=== PATIENT | female | born 1970 | race Caucasian/White ===

== ENCOUNTER 2021-01-15 13:34 | Emergency (ER) | payer BC ==
--- NOTE | 2021-01-15 13:47 | EDM.PDOC ---
ED HPI GENERAL MEDICAL PROBLEM - General Chief Complaint: General Stated Complaint: LUMP ON BACK OF CALF HX OF BLOOD CLOTS Time Seen by Provider: 01/15/21 13:45 Source of Information: Reports: Patient, RN Notes Reviewed History Limitations: Reports: No Limitations - History of Present Illness INITIAL COMMENTS - FREE TEXT/NARRATIVE: Patient is a 50-year-old female who presents to the ER for a lump on the back of her proximal left calf. States that she just noticed this a few days ago. It is not tender, but just bothersome. This is located on the proximal lateral portion of her left calf. She is having no numbness or tingling into her foot, but does also note that she has issues with plantar fasciitis. She is not taking any sort of medications for the pain that she states is not painful. Patient denies any other sick-like symptoms, fever/chills, cough/shortness of breath, nausea/vomiting/diarrhea. She does state that she has a history of clots in her family and she is not on any sort of blood thinners for today's purposes. Patient is from [facility], her primary care resides there. - Related Data Allergies Allergy/AdvReac Type Severity Reaction Status Date / Time Sulfa (Sulfonamide Allergy Rash Verified 01/15/21 13:47 Antibiotics) Home Meds: Home Meds Losartan [Cozaar] 25 mg PO DAILY 01/15/21 [History] amLODIPine [Norvasc] 2.5 mg PO DAILY 01/15/21 [History] Past Medical History - Past Health History Medical/Surgical History: Denies Medical/Surgical History Social & Family History - Family History Hematologic: Reports: Other (See Below) (blood clots) ED ROS GENERAL - Review of Systems Review Of Systems: Comprehensive ROS is negative, except as noted in HPI. ED EXAM, GENERAL - Physical Exam Exam: See Below Exam Limited By: No Limitations General Appearance: Alert, WD/WN, No Apparent Distress Respiratory/Chest: No Respiratory Distress, Lungs Clear, Normal Breath Sounds, No Accessory Muscle Use, Chest Non-Tender Cardiovascular: Normal Peripheral Pulses, Regular Rate, Rhythm, No Edema Peripheral Pulses: 2+: Radial (L), Radial (R), Dorsalis Pedis (L), Dorsalis P harjinder (R) Extremities: Normal Inspection, Normal Range of Motion, Normal Capillary Refill Neurological: Alert, Oriented, Normal Cognition, No Motor/Sensory Deficits Psychiatric: Normal Affect, Normal Mood Skin Exam: Warm, Dry, Intact, Normal Color, No Rash Course - Vital Signs Last Recorded V/S: Last Vital Signs Temp 97.0 F 01/15/21 13:46 Pulse 68 01/15/21 13:46 Resp 18 01/15/21 13:46 BP 146/84 H 01/15/21 13:46 Pulse Ox 99 01/15/21 13:46 - Re-Assessments/Exams Free Text/Narrative Re-Assessment/Exam: 01/15/21 14:45 Patient is a 50-year-old female who presents to the ER for the evaluation of her left lump in her calf. She is extremely worried about the possibility of blood clot, for today's purposes we will go ahead and get ultrasound of the area however the area itself does feel like the insertion point of a tendon. 01/15/21 15:01 Ultrasound has been performed and demonstrates no sign of a DVT, or no abnormality appreciated within the popliteal fossa. Again this could be the tendon had that she was palpating as I had to palpate fairly deep to feel the lump that she was feeling. Departure - Departure Time of Disposition: 15:02 Disposition: Home, Self-Care 01 Condition: Good Clinical Impression: Lump of skin of left lower extremity - Discharge Information *PRESCRIPTION DRUG MONITORING PROGRAM REVIEWED*: No *COPY OF PRESCRIPTION DRUG MONITORING REPORT IN PATIENT ARIS: No Referrals: PCP,Not In Area [Primary Care Provider] - Forms: ED Department Discharge Additional Instructions: You were evaluated in the ER today for the lump on your left lower leg. Ultrasound was obtained and demonstrates no sign of a DVT, or abnormality with in the bend of your knee, that would be concerning for any sort of Fallon's cyst or other lesion. The area you are feeling could very well be the tendon that inserts some of the muscles onto the bone. Please return to the ER at any time if symptoms change or worsen. Sepsis Event Note (ED) - Evaluation Sepsis Screening Result: No Definite Risk - Focused Exam Vital Signs: Vital Signs Temp Pulse Resp BP Pulse Ox 01/15/21 13:46 97.0 F 68 18 146/84 H 99
--- NOTE | 2021-01-15 14:56 | US ---
Left lower extremity deep venous ultrasound: Duplex and color Doppler evaluation was obtained of the right common femoral, greater saphenous, superficial femoral, popliteal, posterior tibial and peroneal veins. Right common femoral vein was also evaluated. Findings: Normal phasic flow, augmentation and compression is seen. No cyst or solid abnormality is seen within the left popliteal fossa. Impression: 1. No finding of deep venous thrombosis is seen with the left lower extremity or within the right common femoral vein. 2. No abnormality is appreciated by ultrasound study within the popliteal fossa. Diagnostic code #1
== END 2021-01-15 15:00 | disposition home or self-care (01) ==
LOC: JD.ED 13:34
DX: R22.42 Localized swelling, mass and lump, left lower limb (principal); Z88.2 Allergy status to sulfonamides; Z79.899 Other long term (current) drug therapy
CPT/HCPCS: 93971-26-LT; 93971-LT; 99283; 99283-25